=== PATIENT | male | born 1990 | race Caucasian/White ===

== ENCOUNTER 2022-05-17 19:25 | Emergency (ER) | payer OTHER, MEDICAID ==
[~2022-05-17] VITALS: Ht 175.3 cm; Wt 81.6 kg
[2022-05-17 19:57] VITALS: BP 127/73
--- NOTE | 2022-05-17 20:04 | NUR ---
TO LOBBY FOLLOWING TRIAGE
--- NOTE | 2022-05-17 20:27 | NUR ---
PT TO BED 12 VIA WC
--- NOTE | 2022-05-17 20:30 | NUR ---
PT BIB WC C/O LEFT FOOT PAIN S/P JUMPING OVER A COUCH AND LANDING WRONG. PT STATES HE HEARD A LOUD "CRACK" AND HAS BEEN UNABLE TO WEIGHT BEAR SINCE. +LIMITED ROM, +SWELLING. NO MEDS TAKEN SOIL [employer]ER.
--- NOTE | 2022-05-17 22:40 | NUR ---
Dr. Ortega examining patient.
--- NOTE | 2022-05-17 22:56 | NUR ---
ORTHO SHOE IMMOBILIZER APPLIED TO L FOOT
[2022-05-18 00:15] VITALS: BP 122/73
--- NOTE | 2022-05-18 00:15 | NUR ---
Patient discharged with v/s stable. Written and verbal after care instructions given and explained. Patient verbalized understanding. Ambulatory with steady gait. All questions addressed prior to discharge. Advised to follow up with PMD.
== END 2022-05-18 00:15 | disposition home or self-care (01) ==
LOC: MED 19:25
DX: S92.352A Displaced fracture of fifth metatarsal bone, left foot, initial encounter for closed fracture (principal); X58.XXXA Exposure to other specified factors, initial encounter; Y93.39 Activity, other involving climbing, rappelling and jumping off; Y92.89 Other specified places as the place of occurrence of the external cause; Y99.8 Other external cause status
CPT/HCPCS: 73630; 99283